=== PATIENT | female | born 1985 | race African-American/Black ===

== ENCOUNTER 2017-07-21 00:39 | Outpatient (CLI) | payer MEDICAID ==
[~2017-07-21] VITALS: Ht 175.3 cm; Wt 111.4 kg
[2017-07-21 00:30] VITALS: BP 133/74
[2017-07-21 02:37] LABS: RAPID INFLUENZA B Negative (Negative)
[2017-07-21 02:38] LABS: RAPID INFLUENZA A POSITIVE (Negative)
== END 2017-07-21 03:11 | disposition home or self-care (01) ==
LOC: LDOP 00:39
PROVIDERS: ATTEND Obstetrics & Gynecology
DX: O36.8120 Decreased fetal movements, second trimester, not applicable or unspecified (principal); O26.892 Other specified pregnancy related conditions, second trimester; R05 Cough; R19.7 Diarrhea, unspecified; R09.89 Other specified symptoms and signs involving the circulatory and respiratory systems; Z3A.25 25 weeks gestation of pregnancy
CPT/HCPCS: 59025; 81001; 87086; 87400; 99211; G0463

== ENCOUNTER 2017-09-07 08:58 | Inpatient (IN) | payer MEDICAID ==
[~2017-09-07] VITALS: Ht 175.3 cm; Wt 115.0 kg
[2017-09-07] MEDS ORDERED: AZITHROMYCIN 500 MG in SODIUM CHLORIDE 0.9% 250 ML IV SCH (09:30)
[2017-09-07] MEDS ORDERED: TERBUTALINE 1 MG/ML, 1ML SQ ONE (09:30)
[2017-09-07] MEDS ORDERED: BETAMETHASONE 6 MG/ML, 5ML IM ONE ×2 (09:30→10:35)
[2017-09-07] MEDS ORDERED: PLEASE ENTER HEIGHT AND WEIGHT MC SCH (10:00)
[2017-09-07] MEDS ORDERED: TERBUTALINE 1 MG/ML, 1ML ONE (10:00)
[2017-09-07] MEDS ORDERED: MAGNESIUM SULF. PMX 20GM/500ML 500 ML IV ONE (10:19)
[2017-09-07] MEDS ORDERED: LACTATED RINGERS 1,000 ML IV PRN (10:24)
[2017-09-07] MEDS ORDERED: MAGNESIUM SULF. PMX 20GM/500ML 500 ML IV SCH (10:24)
[2017-09-07] MEDS ORDERED: MAGNESIUM SULFATE PMX 4GM/100M 100 ML IVPB ONE (10:30)
[2017-09-07 10:46] LABS: BASOPHILS % (AUTO) 0 % (0-1); EOSINOPHILS # (AUTO) 0.03 x10^3/uL (0-0.4); EOSINOPHILS % (AUTO) 0 % (1-7); LYMPHOCYTES # (AUTO) 1.91 x10^3/uL (1-3.4); LYMPHOCYTES % (AUTO) 25 % (22-44); MD NO; MEAN CORPUSCULAR HEMOGLOBIN 25.6 pg (27.0-34.8); MEAN CORPUSCULAR HGB CONC 32.1 g/dL (32.4-35.8); MEAN CORPUSCULAR VOLUME 79.8 fL (80-100); MEAN PLATELET VOLUME 9.6 fL (7.4-10.4); MONOCYTES # (AUTO) 0.38 x10^3/uL (0.2-0.8); MONOCYTES % (AUTO) 5 % (2-9); NEUTROPHILS # (AUTO) 5.49 x10^3/uL (1.8-6.8); NEUTROPHILS % (AUTO) 70 % (42-75); PLATELET COUNT 348 x10^3/uL (130-400); RED BLOOD COUNT 3.87 x10^6/uL (3.82-5.3); RED CELL DISTRIBUTION WIDTH 16.9 % (9.6-15.2)
[2017-09-07] MEDS ORDERED: FENTANYL PF 100 MCG/2ML ONE (12:23)
[2017-09-07] MEDS ORDERED: FENTANYL PF 100 MCG/2ML IVPush PRN (12:30)
[2017-09-07] MEDS ORDERED: MAGNESIUM SULFATE PMX 2GM/50ML 50 ML IVPB ONE (12:30)
[2017-09-07] MEDS ORDERED: METOCLOPRAMIDE 5 MG/ML, 2ML ONE (12:41)
[2017-09-07] MEDS ORDERED: SODIUM CITRATE/CITRIC ACID 30 ML UDC ONE (12:41)
[2017-09-07] MEDS ORDERED: OXYTOCIN 30U/ 0.9% NaCL 500ML 500 ML ONE (12:41)
[2017-09-07] MEDS ORDERED: NEWBORN KIT ONE (12:46)
[2017-09-07] MEDS ORDERED: OXYTOCIN 10 UNITS/ML, 1ML ONE (12:48)
[2017-09-07] MEDS ORDERED: ONDANSETRON 2MG/ML, 2ML ONE ×2 (12:48→15:02)
[2017-09-07] MEDS ORDERED: CEFAZOLIN 1,000 MG ONE ×2 (12:48→13:56)
[2017-09-07] MEDS ORDERED: PHENYLEPHRINE 10 MG/ML ONE (12:48)
[2017-09-07] MEDS ORDERED: EPHEDRINE 50 MG/ML, 1ML ONE (12:48)
[2017-09-07] MEDS ORDERED: WATER-INJECTION,STERILE 10 ML IV ONE (12:48)
[2017-09-07] MEDS ORDERED: morphine SULFATE/PF 0.5 MG/ML, 10ML ONE (12:48)
[2017-09-07] MEDS ORDERED: HYDROmorphone 2 MG/ML, 1ML ONE ×2 (13:56→15:01)
[2017-09-07] MEDS ORDERED: FENTANYL PF 250 MCG/5ML ONE (13:56)
[2017-09-07] MEDS: LACTATED RINGERS 1,000 ML IV SCH ×3 (14:29→22:29)
[2017-09-07] MEDS ORDERED: ACETAMINOPHEN 325 MG TABLET PO PRN (14:30)
[2017-09-07] MEDS ORDERED: OXYcodone IR 5MG TABLET PO PRN (14:30)
[2017-09-07] MEDS ORDERED: METHYLERGONOVINE 0.2 MG/ML IM PRN (14:30)
[2017-09-07] MEDS ORDERED: ONDANSETRON 2MG/ML, 2ML IV PRN (14:30)
[2017-09-07] MEDS: OXYTOCIN 30U/ 0.9% NaCL 500ML 500 ML IV SCH (15:00)
[2017-09-07] MEDS ORDERED: AMPICILLIN 1 GM IM ONE (15:00)
[2017-09-07] MEDS: HYDROmorphone 1 MG/ML, 1ML IVPush PRN ×3 (15:15→15:45)
[2017-09-07] MEDS ORDERED: KETOROLAC 30 MG/1 ML ONE (16:01)
[2017-09-07] MEDS ORDERED: HYDROmorphone/PF 10 MG/ML, 1ML IVPush PRN (16:30)
[2017-09-07] MEDS ORDERED: KETOROLAC 30 MG/1 ML IVPush SCH (16:30)
[2017-09-07] MEDS ORDERED: DIPHENHYDRAMINE 50 MG/ML, 1ML ONE (16:36)
[2017-09-07] MEDS ORDERED: DIPHENHYDRAMINE 50 MG/ML, 1ML IVPush ONE (17:00)
[2017-09-07 17:20] VITALS: BP 142/91
[2017-09-07 19:45] VITALS: BP 131/80
[2017-09-07] MEDS: KETOROLAC 30 MG/1 ML IVPush SCH (22:20)
[2017-09-07 22:26] LABS: BASOPHILS # (AUTO) 0.03 x10^3/uL (0-0.1); BASOPHILS % (AUTO) 0 % (0-1); EOSINOPHILS % (AUTO) 0 % (1-7); LYMPHOCYTES # (AUTO) 0.74 x10^3/uL (1-3.4); LYMPHOCYTES % (AUTO) 6 % (22-44); MD NO; MEAN CORPUSCULAR HEMOGLOBIN 25.2 pg (27.0-34.8); MEAN CORPUSCULAR HGB CONC 31.1 g/dL (32.4-35.8); MEAN CORPUSCULAR VOLUME 81.1 fL (80-100); MEAN PLATELET VOLUME 9.6 fL (7.4-10.4); MONOCYTES # (AUTO) 0.66 x10^3/uL (0.2-0.8); MONOCYTES % (AUTO) 5 % (2-9); NEUTROPHILS # (AUTO) 10.91 x10^3/uL (1.8-6.8); NEUTROPHILS % (AUTO) 88 % (42-75); PLATELET COUNT 337 x10^3/uL (130-400); RED BLOOD COUNT 3.82 x10^6/uL (3.82-5.3); RED CELL DISTRIBUTION WIDTH 16.9 % (9.6-15.2)
[2017-09-07] MEDS: METOCLOPRAMIDE 5 MG/ML, 2ML IVPush PRN (23:13)
[2017-09-08 00:10] VITALS: BP 130/79
[2017-09-08] MEDS: OXYTOCIN 30U/ 0.9% NaCL 500ML 500 ML IV SCH (00:29)
[2017-09-08] MEDS: LACTATED RINGERS 1,000 ML IV SCH ×2 (00:29→06:29)
[2017-09-08 04:30] VITALS: BP 130/83
[2017-09-08] MEDS: KETOROLAC 30 MG/1 ML IVPush SCH ×3 (04:31→16:54)
[2017-09-08] MEDS: METOCLOPRAMIDE 5 MG/ML, 2ML IVPush PRN (07:38)
[2017-09-08] MEDS: PRENATAL VIT/IRON/FA 1 EACH TABLET PO SCH (07:38)
[2017-09-08] MEDS: DOCUSATE 100 MG CAPSULE PO PRN ×2 (07:38→22:52)
[2017-09-08 07:59] VITALS: BP 147/85
[2017-09-08] MEDS: OXYcodone/APAP 5/325MG TABLET PO PRN ×2 (09:28→22:48)
[2017-09-08 12:30] VITALS: BP 116/70
[2017-09-08 20:14] VITALS: BP 143/87
[2017-09-08] MEDS: IBUPROFEN 800 MG TABLET PO PRN (22:48)
[2017-09-09 00:15] VITALS: BP 130/80
[2017-09-09] MEDS: IBUPROFEN 800 MG TABLET PO PRN ×2 (06:39→15:17)
[2017-09-09] MEDS: OXYcodone/APAP 5/325MG TABLET PO PRN ×4 (06:39→19:57)
[2017-09-09 08:00] VITALS: BP 144/87
[2017-09-09] MEDS: DOCUSATE 100 MG CAPSULE PO PRN ×2 (11:36→19:57)
[2017-09-09] MEDS: PRENATAL VIT/IRON/FA 1 EACH TABLET PO SCH (11:37)
[2017-09-09 19:35] VITALS: BP 130/82
[2017-09-10] MEDS: IBUPROFEN 800 MG TABLET PO PRN ×3 (03:50→19:52)
[2017-09-10] MEDS: OXYcodone/APAP 5/325MG TABLET PO PRN ×5 (03:50→19:52)
[2017-09-10 07:57] VITALS: BP 146/91
[2017-09-10] MEDS: PRENATAL VIT/IRON/FA 1 EACH TABLET PO SCH (08:00)
[2017-09-10] MEDS: DOCUSATE 100 MG CAPSULE PO PRN ×2 (08:00→19:52)
[2017-09-10 19:46] VITALS: BP 153/82
[2017-09-11] MEDS: OXYcodone/APAP 5/325MG TABLET PO PRN ×2 (02:24→07:43)
[2017-09-11] MEDS: DOCUSATE 100 MG CAPSULE PO PRN (07:43)
[2017-09-11] MEDS: IBUPROFEN 800 MG TABLET PO PRN (07:43)
[2017-09-11] MEDS: PRENATAL VIT/IRON/FA 1 EACH TABLET PO SCH (07:43)
[2017-09-11 07:59] VITALS: BP 148/89
[2017-09-11] MEDS ORDERED: IBUP-1223 PO (10:06)
[2017-09-11] MEDS ORDERED: FERR325T23 PO (10:06)
[2017-09-11] MEDS ORDERED: OXYC-302 PO (10:06)
== END 2017-09-11 10:15 | disposition home or self-care (01) | DRG 765 ==
LOC: LDOP 08:58 → LDIP 09:16 → 2NW 17:30
PROVIDERS: ADMIT Obstetrics & Gynecology; ATTEND Obstetrics & Gynecology
PROC: 10D00Z1 Extraction of Products of Conception, Low, Open Approach (ICD-10-PCS; principal; 2017-09-07)
DX: O42.013 Preterm premature rupture of membranes, onset of labor within 24 hours of rupture, third trimester (principal); O30.013 Twin pregnancy, monochorionic/monoamniotic, third trimester; Z37.2 Twins, both liveborn; O32.1XX2 Maternal care for breech presentation, fetus 2; O76 Abnormality in fetal heart rate and rhythm complicating labor and delivery; Z3A.32 32 weeks gestation of pregnancy; O90.81 Anemia of the puerperium; D64.9 Anemia, unspecified
CPT/HCPCS: 36415; 76815; 82803; 85025; 88305; J0690; J0702; J1170; J1885; J2274; J2405; J3010; J1200; J2370; J2590; J2765; J3475; J7120